=== PATIENT | female | born 1985 | race Caucasian/White ===

== ENCOUNTER → 2016-10-02 | Outpatient (CLI) | payer MEDICAID ==
[~2016-10-02] MED LIST: CALNTAB PO; CEPH-460 PO; DIAZ5 PO; FOLI5CAP PO; HYDR-3535 PO; PILO5 PO; VITA100T15 PO; VITA500030 CHEW
== END ==
LOC: HPND 12:53
PROVIDERS: ATTEND Obstetrics & Gynecology
DX: O99.322 Drug use complicating pregnancy, second trimester (principal); M35.00 Sjogren syndrome, unspecified; E03.9 Hypothyroidism, unspecified; Z3A.19 19 weeks gestation of pregnancy
CPT/HCPCS: 76811

== ENCOUNTER → 2016-10-16 | Outpatient (CLI) | payer MEDICAID | LOC: HPND 13:33 | PROVIDERS: ATTEND Obstetrics & Gynecology | DX: O99.282 Endocrine, nutritional and metabolic diseases complicating pregnancy, second trimester (principal); O99.89 Other specified diseases and conditions complicating pregnancy, childbirth and the puerperium; Z3A.21 21 weeks gestation of pregnancy | CPT/HCPCS: 76815 ==

== ENCOUNTER 2016-10-26 15:40 | Emergency (ER) | payer MEDICAID ==
[~2016-10-26] VITALS: Ht 162.6 cm; Wt 85.0 kg
[~2016-10-26 15:40] MED LIST changes: -CEPH-460 PO
[2016-10-26 16:02] VITALS: BP 105/71; PULSE 77; RESP 15; TEMP 98; O2SAT 97
[2016-10-26] MEDS ORDERED: CEPH-460 PO ×2 (17:58→18:09)
--- NOTE | 2016-10-26 18:00 | PD ---
HPI Chief Complaint: Bite or Sting Time Seen by Provider: 17:58 Travel History International Travel<30 days: No Contact w/Intl Traveler<30days: No Traveled to known affect area: No History of Present Illness HPI 31-year-old one P0 23 week female presents to the emergency room for evaluation of multiple mosquito bites to her right foot. Patient states she was bitten 2 weeks ago and they have not improved. Reports extreme itchiness, waking her from her sleep. She has been applying hydrocortisone cream, topical Benadryl, alcohol, and soaking her foot in warm water without relief in symptoms. States she usually has a hypersensitive reaction to mosquitoes and is concerned for infection. Stat her right foot was more swollen than her left foot and believes it is due to the poison from the mosquitoes. Denies fever, chills, nausea, and vomiting. PFSH Past Medical History Autoimmune Disease: Yes (SJOGREN'S SYNDROME) Bipolar Disorder: Yes (NO MEDS) Cancer: No Cardiovascular Problems: No Diabetes: No Diminished Hearing: No Fibromyalgia: Yes Glaucoma: No Hepatitis: No Hiatal Hernia: Yes Herniated Disk: Yes (L5-S1) Hypertension: No Medical other: Yes (BACK AND NECK) Musculoskeletal: Yes (BACK PAIN, neck pain) Respiratory: Yes (Asthma ) Thyroid Disease: Yes (HYPOTHYROIDISM) ?: LMP: 05/18/2016 : 4 Miscarriage: 2 : 1 Past Surgical History Tonsillectomy: Yes Other Surgery: No Social History Alcohol Use: No Tobacco Use: No (QUIT MAY 2016) Substance Use: No (marijuana at times) Allergies-Medications (Allergen,Severity, Reaction): Coded Allergies: Flexeril (Verified Allergy, Mild, SOB, 10/26/16) Cipro (Verified Allergy, Unknown, 10/26/16) Reported Meds & Prescriptions Reported Meds & Active Scripts Active Keflex (Cephalexin) 500 Mg Cap 500 Mg PO Q8H 5 Days Reported Folic Acid 5 Mg Cap 5 Mg PO DAILY Vitamin B12 (Cyanocobalamin) 100 Mcg Tab 100 Mcg PO DAILY Calna ( Vitamin) 1 Tab Tab 1 Tab PO DAILY Salagen (Pilocarpine) 5 Mg Tab 5 Mg PO Q8HR Lortab (Hydrocodone-Acetaminophen) 10-325 Mg Tab 1 Tab PO TID PRN Valium (Diazepam) 5 Mg Tab 5 Mg PO DAILY PRN Vitamin D3 (Cholecalciferol) 5,000 Unit Chew 5,000 Units CHEW DAILY Review of Systems Except as stated in HPI: all other systems reviewed are Neg Physical Exam Narrative GENERAL: Well-nourished, well-developed female in no acute distress. Afebrile. Ambulatory. SKIN: Warm and dry. There are several erythematous maculopapular lesions on the right foot. There is no drainage, increased warmth, erythema, or significant tenderness to palpation. No lymphangitis. There is mild edema in the right lower extremity especially over the fifth digit which is where most of the bites are located. HEAD: Normocephalic. EYES: No scleral icterus. No injection or drainage. NECK: Supple, trachea midline. No JVD or lymphadenopathy. Data Data Last Documented VS Vital Signs Date Time Temp Pulse Resp B/P Pulse Ox O2 Delivery O2 Flow Rate FiO2 10/26/16 16:02 98.0 77 15 105/71 97 MDM Medical Decision Making Medical Screen Exam Complete: Yes Emergency Medical Condition: Yes Medical Record Reviewed: Yes Differential Diagnosis Insect bite versus abscess versus folliculitis Narrative Course 31-year-old 23 week female presents to the emergency room for evaluation of multiple mosquito bites to bilateral feet for the past 2 weeks. There are about 7 total bites, more on the right than left. Bites are nontender to palpation. They're not raised. No erythema, increased warmth, or drainage. There is slight increased edema of the right foot compared to the left but both feet appear very slightly edematous. Vital signs stable; no hypertension. Patient is requesting steroid injection or 2.5% topical cortisone cream. It was explained to her that these are both category C and her symptoms do not warrant the risks to the fetus. She is given a short course of low-dose Keflex for possible infection given persistence of edema and told to follow up with her reception clerk. She understands and agrees to plan. Diagnosis Primary Impression: Insect bite Qualified Code: W57.XXXA - Insect bite, initial encounter Referrals: Primary Care Physician Patient Instructions: General Instructions, Insect Bite or Sting (ED) Additional Instructions: Elevate feet. Apply ice to reduce swelling. Apply warmth to the wounds to draw out infection. Continue triple antibiotic ointment until healed. Take Keflex as directed, until gone. Follow up with your OB. Return to emergency room for worsening symptoms, as discussed. Med/Other Pt SpecificInfo: Prescription(s) given Scripts Cephalexin (Keflex)500 Mg [id number] Mg PO Q8H 5 Days Ref 0 Prov:John Santo MD 10/26/16 Disposition: 01 DISCHARGE HOME Condition: Stable Amara Saleem Oct 26, 2016 18:00
== END 2016-10-26 18:17 | disposition home or self-care (01) ==
LOC: PHED 15:40 → PHEFT 18:17
DX: S90.861A Insect bite (nonvenomous), right foot, initial encounter (principal); S90.862A Insect bite (nonvenomous), left foot, initial encounter; W57.XXXA Bitten or stung by nonvenomous insect and other nonvenomous arthropods, initial encounter
CPT/HCPCS: 99281

== ENCOUNTER → 2016-10-30 | Outpatient (CLI) | payer MEDICAID ==
[~2016-10-30] MED LIST changes: +CEPH-460 PO
== END ==
LOC: HPND 13:31
PROVIDERS: ATTEND Obstetrics & Gynecology
DX: O99.89 Other specified diseases and conditions complicating pregnancy, childbirth and the puerperium (principal); O99.282 Endocrine, nutritional and metabolic diseases complicating pregnancy, second trimester
CPT/HCPCS: 76816; 76825; 76827; 93325

== ENCOUNTER → 2016-11-13 | Outpatient (CLI) | payer MEDICAID | LOC: HPND 13:26 | PROVIDERS: ATTEND Obstetrics & Gynecology | DX: O99.89 Other specified diseases and conditions complicating pregnancy, childbirth and the puerperium (principal); O99.282 Endocrine, nutritional and metabolic diseases complicating pregnancy, second trimester; Z3A.25 25 weeks gestation of pregnancy | CPT/HCPCS: 76815 ==

== ENCOUNTER → 2016-11-27 | Outpatient (CLI) | payer MEDICAID | LOC: HPND 11:24 | PROVIDERS: ATTEND Obstetrics & Gynecology | DX: O35.2XX0 Maternal care for (suspected) hereditary disease in fetus, not applicable or unspecified (principal); O99.89 Other specified diseases and conditions complicating pregnancy, childbirth and the puerperium; O99.282 Endocrine, nutritional and metabolic diseases complicating pregnancy, second trimester; Z3A.27 27 weeks gestation of pregnancy | CPT/HCPCS: 76816 ==

== ENCOUNTER → 2017-01-07 | Outpatient (CLI) | payer MEDICAID | LOC: HPND 11:41 | PROVIDERS: ATTEND Obstetrics & Gynecology | DX: O99.323 Drug use complicating pregnancy, third trimester (principal); O13.3 Gestational [pregnancy-induced] hypertension without significant proteinuria, third trimester; O99.283 Endocrine, nutritional and metabolic diseases complicating pregnancy, third trimester; O99.89 Other specified diseases and conditions complicating pregnancy, childbirth and the puerperium; M32.9 Systemic lupus erythematosus, unspecified; Z3A.33 33 weeks gestation of pregnancy | CPT/HCPCS: 76816; 76818; 76820 ==

== ENCOUNTER 2017-10-14 09:10 | Emergency (ER) | payer MEDICAID ==
[~2017-10-14 09:10] MED LIST changes: -CALNTAB PO; -CEPH-460 PO; +CYAN100 PO; +D 50CAP2 PO; +FOLI400T PO; -FOLI5CAP PO; +LIOT5TAB3 PO; +TIRO75CA PO; -VITA100T15 PO; -VITA500030 CHEW
[2017-10-14 09:15] VITALS: BP 129/64; PULSE 74; RESP 20; TEMP 97.7; O2SAT 100
[2017-10-14] MEDS ORDERED: HYDR-3583 PO (09:17)
[2017-10-14] MEDS ORDERED: CEPH-460 PO (09:43)
--- NOTE | 2017-10-14 09:43 | PD ---
HPI Chief Complaint: Skin Problem Time Seen by Provider: 09:30 Travel History International Travel<30 days: No Contact w/Intl Traveler<30days: No Traveled to known affect area: No History of Present Illness HPI 32-year-old female presents to the ED for evaluation of less than 24 hour history of red, painful spot on the left cheek. Constant pain rated 2/10, no alleviating or exacerbating factors reported. Patient states that the symptoms onset gradually. She states that she had a hive in the area and over the course the day began to deepen in color and drainage small amount of clear fluid. He denies fever, chills, nausea, vomiting, dental problems or involvement on the buccal surface. She denies history of MRSA. She is currently nursing. PFSH Past Medical History Autoimmune Disease: Yes (SJOGREN'S SYNDROME) Bipolar Disorder: Yes (NO MEDS) Cancer: No Cardiovascular Problems: No Diabetes: No Diminished Hearing: No Fibromyalgia: Yes Glaucoma: No Hepatitis: No Hiatal Hernia: Yes Herniated Disk: Yes (L5-S1) Hypertension: No Medical other: Yes (BACK AND NECK) Musculoskeletal: Yes (BACK PAIN, neck pain) Respiratory: Yes (Asthma ) Thyroid Disease: Yes (HYPOTHYROIDISM) ?: Not : 4 Miscarriage: 2 : 1 Past Surgical History Tonsillectomy: Yes Other Surgery: No Social History Alcohol Use: No Tobacco Use: No (QUIT MAY 2016) Substance Use: No (marijuana at times) Allergies-Medications (Allergen,Severity, Reaction): Coded Allergies: cyclobenzaprine (Unverified Allergy, Mild, SOB, 10/14/17) ciprofloxacin (Unverified Allergy, Unknown, 10/14/17) Reported Meds & Prescriptions Reported Meds & Active Scripts Active Keflex (Cephalexin) 500 Mg Cap 500 Mg PO Q6H 5 Days Tirosint (Levothyroxine Sodium) 75 Mcg Cap 75 Mcg PO DAILY Liothyronine (Liothyronine Sodium) 5 Mcg Tab 5 Mcg PO DAILY Reported Hydrocodone-Acetaminophen 10-325 mg Tab 1 Tab PO Q4H PRN Folic Acid 400 Mcg Tab 400 Mcg PO DAILY D3 Maximum Strength (Cholecalciferol) 5,000 Unit Cap 5,000 Units PO DAILY Vitamin B12 (Cyanocobalamin) 100 Mcg Tab 100 Mcg PO DAILY Salagen (Pilocarpine) 5 Mg Tab 5 Mg PO Q8HR Review of Systems Except as stated in HPI: all other systems reviewed are Neg Physical Exam Narrative GENERAL: Well-nourished, well-developed white female in no acute distress. SKIN: Focused skin assessment warm/dry. SKIN: There is an indurated area in the left cheek which measures about 1.25 cm in diameter. No fluctuance, no pointing. Scant serosanguineous drainage. There is a zone of inflammation around it but no lymphangitis. HEAD: Normocephalic. EYES: No scleral icterus. No injection or drainage. NECK: Supple, trachea midline. No JVD or lymphadenopathy. CARDIOVASCULAR: Regular rate and rhythm without murmurs, gallops, or rubs. RESPIRATORY: Breath sounds equal bilaterally. No accessory muscle use. GASTROINTESTINAL: Abdomen soft, non-tender, nondistended. MUSCULOSKELETAL: No cyanosis, or edema. BACK: Nontender without obvious deformity. No CVA tenderness. Data Data Last Documented VS Vital Signs Date Time Temp Pulse Resp B/P (MAP) Pulse Ox O2 Delivery O2 Flow Rate FiO2 10/14/17 09:15 97.7 74 20 129/64 (85) 100 Orders Orders Ed Discharge Order (10/14/17 09:44) MDM Medical Decision Making Medical Screen Exam Complete: Yes Emergency Medical Condition: Yes Differential Diagnosis Acute colitis versus carbuncle versus furuncle versus abscess versus cellulitis versus other Narrative Course 32-year-old female presents to the ED for evaluation of less than 24 hour history of red, painful spot on the left cheek. She states that she had a hive in the area and over the course the day began to deepen in color and drainage small amount of clear fluid. He denies fever, chills, nausea, vomiting , dental problems or involvement on the buccal surface. She denies history of MRSA. She is currently nursing. Vitals reviewed. Physical exam reveals a 1.5 cm indurated area of the left cheek with a pinpoint open area draining scant serosanguineous fluid. No fluctuance, no pointing. I suspect early cellulitis. Patient's instructed to use warm compresses, prescribed a short course of Keflex. She is instructed to return to the ED if symptoms worsen. She is stable and discharged home. Diagnosis Primary Impression: Cellulitis and abscess of face Referrals: Primary Care Physician Patient Instructions: Abscess (ED), Cellulitis (ED), General Instructions Additional Instructions: Rest, hydrate. Keep the wound clean and dry. Warm, moist compresses applied to the area 10-15 minutes at a time 4-5 times a day will help relieve her symptoms. Take antibiotics as they're prescribed until every pill is gone. Return to the ED for worsening symptoms or any urgent or emergent medical condition. Med/Other Pt SpecificInfo: Prescription(s) given Scripts Cephalexin (Keflex) 500 Mg Cap 500 MG PO Q6H for Infection for 5 Days, #20 CAP 0 Refills Prov: Cecilia Mederos MD 10/14/17 Disposition: 01 DISCHARGE HOME Condition: Stable Kena Cesar Oct 14, 2017 09:43
== END 2017-10-14 09:56 | disposition home or self-care (01) ==
LOC: PHED 09:10 → PHEFT 09:56
DX: L03.211 Cellulitis of face (principal); L02.01 Cutaneous abscess of face; F31.9 Bipolar disorder, unspecified; M79.7 Fibromyalgia; M35.00 Sjogren syndrome, unspecified; E03.9 Hypothyroidism, unspecified; J45.909 Unspecified asthma, uncomplicated; Z88.8 Allergy status to other drugs, medicaments and biological substances; Z79.899 Other long term (current) drug therapy
CPT/HCPCS: 99283